=== PATIENT | female | born 1960 | race Caucasian/White ===

== ENCOUNTER → 2018-10-15 | Outpatient (CLI) | payer BC | END | disposition home or self-care (01) | LOC: CFH 10:12 | PROVIDERS: ATTEND Family Medicine | DX: S32.591D Other specified fracture of right pubis, subsequent encounter for fracture with routine healing (principal); X58.XXXD Exposure to other specified factors, subsequent encounter; G89.29 Other chronic pain | CPT/HCPCS: 72192 ==